=== PATIENT | male | born 1975 | race African-American/Black ===

== ENCOUNTER 2022-01-06 12:10 | Emergency (ER) | payer BC ==
[2022-01-06 12:48] VITALS: BP 127/69; PULSE 90; RESP 10; TEMP 97.9; BMI 41.8
[2022-01-06] MEDS ORDERED: ONDANSETRON 4 MG TABLET PO ONE (13:05)
[2022-01-06] MEDS ORDERED: ACETAMINOPHEN 325 MG TABLET (FP) PO ONE (13:43)
[2022-01-06] MEDS ORDERED: ONDANSETRON *ODT* 4 MG TABLET SL ONE (13:43)
[2022-01-06] MEDS ORDERED: LOPERAMIDE HCL 1 MG/5 ML UNIT DOSE CUP PO ONE (13:43)
[2022-01-06] MEDS ORDERED: ONDANSETRON *ODT* 4 MG TABLET ONE (14:14)
[2022-01-06] MEDS ORDERED: ACETAMINOPHEN 325 MG TABLET (FP) ONE (14:14)
[2022-01-06] MEDS ORDERED: LOPERAMIDE HCL 2 MG CAPSULE PO ONE (14:30)
[2022-01-06] MEDS ORDERED: LOPERAMIDE HCL 2 MG CAPSULE ONE (14:41)
== END 2022-01-06 16:37 | disposition home or self-care (01) ==
LOC: JER 12:10
DX: J11.1 Influenza due to unidentified influenza virus with other respiratory manifestations (principal); R11.2 Nausea with vomiting, unspecified; R19.7 Diarrhea, unspecified
CPT/HCPCS: 0241U-QW; 99283-25; Q0162